=== PATIENT | male | born 1955 ===

== ENCOUNTER 2017-09-16 09:07 | Outpatient (CLI) | payer MEDICARE ==
--- NOTE | 2017-09-16 10:31 | XRay Report ---
Right knee 4 views: History: Knee pain. Findings: Marked narrowing of the medial and patellofemoral compartment knee joint. Sclerotic articular surfaces with peripheral osteophytes suggestive severe degenerative changes. No fracture or joint effusion. 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
== END 2017-09-16 09:08 | disposition home or self-care (01) ==
LOC: SPVIMAG 09:07
PROVIDERS: ATTEND Orthopaedic Surgery Sports Medicine
DX: M17.11 Unilateral primary osteoarthritis, right knee (principal)